=== PATIENT | male | born 1945 | race Caucasian/White ===

== ENCOUNTER 2021-09-28 16:35 | Outpatient (REF) | payer SELFPAY ==
[2021-09-28 17:49] LABS: Abs Immature Grans 0.01 10^3/uL (0.0-0.06); Absolute Basophil Count 0.05 10^3/uL (0.0-0.2); Absolute Eosinophil Count 0.21 10^3/uL (0.0-0.7); Absolute Lymphocyte Count 1.03 10^3/uL (1.2-3.4); Absolute Monocyte Count 0.54 10^3/uL (0.1-0.8); Basophils % 1.1; Eosinophils % 4.7; HCT 35.4 % (40.0-50.0); HGB 11.8 g/dL (13.5-17.5); Immature Grans % 0.2; Lymphocytes % 23.2; MCH 33.1 pg (27.0-33.0); MCHC 33.3 % (32.0-36.0); MCV 99.2 fL (80-95); MPV 10.6 fL (8.0-11.0); Monocytes % 12.2; Neutrophils % 58.6; Nucleated RBC 0 %; Platelet Count 128 10^3/uL (130-400); RBC 3.57 10^6/uL (4.36-5.78); RDW 15.2 % (11.8-14.1); RDW-SD 56.1 fL; WBC 4.44 10^3/uL (4.4-10.8)
[2021-09-28 18:05] LABS: ALT 21 U/L (16-63); AST 51 U/L (15-37); Albumin 2.9 g/dL (3.4-5.0); Alkaline Phosphatase 122 U/L (46-116); Anion Gap 5.5 mmol/L (3-11); BUN 24 mg/dL (7-18); Bilirubin, Direct 0.4 mg/dL (0.0-0.2); Bilirubin, Total 1.1 mg/dL (0.2-1.0); CO2 29.5 mmol/L (21.0-32.0); CREATININE 0.7 mg/dL (0.70-1.30); Calcium 8.3 mg/dL (8.5-10.1); Chloride 108 mmol/L (98-107); Glucose 115 mg/dL (74-106); Potassium 3.9 mmol/L (3.5-5.1); Sodium 143 mmol/L (136-145); Total Protein 6.6 g/dL (6.4-8.2)
== END 2021-09-28 16:36 | disposition home or self-care (01) ==
LOC: LBN 16:35
PROVIDERS: Visit Provider Family Medicine
DX: E11.40 Type 2 diabetes mellitus with diabetic neuropathy, unspecified (principal); I10 Essential (primary) hypertension
CPT/HCPCS: 80048; 80076; 85025

== ENCOUNTER 2021-11-03 16:17 | Outpatient (REF) | payer MEDICARE, SELFPAY ==
[2021-11-03 19:38] LABS: Absolute Basophil Count 0.05 10^3/uL (0.0-0.2); Absolute Eosinophil Count 0.19 10^3/uL (0.0-0.7); Absolute Lymphocyte Count 0.92 10^3/uL (1.2-3.4); Absolute Monocyte Count 0.71 10^3/uL (0.1-0.8); Absolute Neutrophil Count 2.28 10^3/uL (1.2-6.7); Basophils % 1.2; Eosinophils % 4.6; HCT 33.3 % (40.0-50.0); HGB 11.3 g/dL (13.5-17.5); Lymphocytes % 22.2; MCH 34.2 pg (27.0-33.0); MCHC 33.9 % (32.0-36.0); MCV 100.9 fL (80-95); MPV 10.5 fL (8.0-11.0); Monocytes % 17.1; Neutrophils % 54.9; Nucleated RBC 0 %; Platelet Count 108 10^3/uL (130-400); RDW 14.9 % (11.8-14.1); RDW-SD 55.2 fL; WBC 4.15 10^3/uL (4.4-10.8)
[2021-11-03 19:43] LABS: ALT 10 U/L (16-63); AST 30 U/L (15-37); Albumin 2.5 g/dL (3.4-5.0); Alkaline Phosphatase 93 U/L (46-116); Anion Gap 6.9 mmol/L (3-11); BUN 19 mg/dL (7-18); Bilirubin, Total 1.1 mg/dL (0.2-1.0); C-Reactive Protein 0.83 mg/dL (0.0-0.3); CO2 26.1 mmol/L (21.0-32.0); CREATININE 0.8 mg/dL (0.70-1.30); Calcium 8.4 mg/dL (8.5-10.1); Chloride 107 mmol/L (98-107); Creatine Kinase 52 U/L (39-308); Glucose 117 mg/dL (74-106); Potassium 4.1 mmol/L (3.5-5.1); Sodium 140 mmol/L (136-145); Total Protein 5.8 g/dL (6.4-8.2)
== END 2021-11-03 16:18 | disposition home or self-care (01) ==
LOC: LBN 16:17
PROVIDERS: Visit Provider Family Medicine
DX: G20 Parkinson's disease (principal); E11.40 Type 2 diabetes mellitus with diabetic neuropathy, unspecified; I48.0 Paroxysmal atrial fibrillation
CPT/HCPCS: 80053; 82550; 85025; 86140

== ENCOUNTER 2021-12-03 18:14 | Outpatient (REF) | payer MEDICARE, OTHER, SELFPAY ==
[2021-12-03 19:50] LABS: Bilirubin Negative (Negative); Blood Moderate (Negative); Clarity Sl Cloudy (Clear); Glucose Negative (Negative); Ketones Negative (Negative); Leukocyte Esterase Negative (Negative); Nitrite Negative (Negative); Specific Gravity >= 1.030 (1.005-1.025)
[2021-12-03 20:07] LABS: Bacteria Negative HPF (Negative); Epithelial Cells Negative HPF (Negative); Other Cells Negative (Negative); RBC >50 HPF (0-2)
[2021-12-03 20:08] LABS: C & S Indicated? C&S Done As Ordered; Casts Negative LPF (Negative); Crystals Mod Calcium Oxalate HPF (Negative); Mucus Heavy (Negative)
== END 2021-12-03 18:15 | disposition home or self-care (01) ==
LOC: LBN 18:14
PROVIDERS: PCP Family Medicine; Visit Provider Family Medicine
DX: R41.0 Disorientation, unspecified (principal)
CPT/HCPCS: 81003; 81015; 87086

== ENCOUNTER 2022-02-17 14:13 | Outpatient (REF) | payer MEDICARE, OTHER, SELFPAY ==
[2022-02-17 17:10] LABS: HCT 32.6 % (40.0-50.0); HGB 11.3 g/dL (13.5-17.5); MCH 35.9 pg (27.0-33.0); MCHC 34.7 % (32.0-36.0); MCV 104 fL (80-95); MPV 10.4 fL (8.0-11.0); RBC 3.15 10^6/uL (4.36-5.78); RDW 15.2 % (11.8-14.1); RDW-SD 58.2 fL; WBC 3.84 10^3/uL (4.4-10.8)
[2022-02-17 17:15] LABS: Platelet Count 101 10^3/uL (130-400)
== END 2022-02-17 14:14 | disposition home or self-care (01) ==
LOC: LBN 14:13
PROVIDERS: PCP Family Medicine; Visit Provider Nurse Practitioner Family
DX: E11.40 Type 2 diabetes mellitus with diabetic neuropathy, unspecified (principal)
CPT/HCPCS: 85027

== ENCOUNTER 2022-03-03 12:56 | Emergency (ER) | payer OTHER, MEDICARE, SELFPAY ==
[2022-03-03] VITALS (16 sets, daily range): BP systolic 136–169; BP diastolic 50–68; PULSE 62–77; RESP 8–16; TEMP 36.8; O2SAT 98–99
--- NOTE | 2022-03-03 13:15 | RT.EKG_ITS ---
APPROVED REPORT Exam: Resting ECG Reason for Exam: chest pain Patient Location: E HR:66 bpm ECG Measurements Heart Rate 66 AXIS MO 150 P -8 QRSd 116 QRS 45 QT 444 T 242 QTc 467 Conclusion Sinus rhythm...normal P axis, V-rate 60- 99 Nonspecific intraventricular conduction delay...QRSd >115mS, not LBBB/RBBB Low voltage, precordial leads...precordial leads <1.0mV Nonspecific T abnormalities, lateral leads...T <-0.10mV, I aVL V5 V6. Sinus. Less than 1mm ST depression in inferolateral leads. No old ekg to compare. No STEMI. I have reviewed and interpreted ECG and agree with software generated interpretation.
--- NOTE | 2022-03-03 13:15 | DI.CT_ITS ---
Exam(s) CT HEAD WO EXAM: CT HEAD WO CLINICAL HISTORY: altered mental status, r/o acute cva. TECHNIQUE: Imaging Protocol: Axial computed tomography images with coronal and sagittal reformatted images were created and reviewed COMPARISON: No exams were available for comparison FINDINGS: Ventricles and Extra axial spaces: Normal in size and morphology for the patient's age. Hemorrhage: None. Cerebral parenchyma: Atrophy. White matter changes consistent with small vessel disease. Midline shift: None. Brainstem/Cerebellum: Normal. Calvarium: Normal. Visualized Paranasal sinuses/Mastoids: Clear. IMPRESSION: No acute abnormality. RADIATION DOSE DELIVERED: 805.59mGy.cm Total DLP 805.59mGy.cm Total DLP DATA REPOSITORY: All CT scans at this facility are submitted to the National Radiology Data Registry (NRDR) Dose Index Registry (DIR) with the [employer] ([employer]). RADIATION OPTIMIZATION: All CT scans at this facility use at least one of these dose optimization te chniques: automated exposure control; mA and/or kV adjustment per patient size (includes targeted exa ms where dose is matched to clinical indication); or iterative reconstruction.
[2022-03-03 13:55] LABS: Absolute Basophil Count 0.04 10^3/uL (0.0-0.2); Absolute Eosinophil Count 0.16 10^3/uL (0.0-0.7); Absolute Lymphocyte Count 0.96 10^3/uL (1.2-3.4); Absolute Monocyte Count 0.54 10^3/uL (0.1-0.8); Absolute Neutrophil Count 2.17 10^3/uL (1.2-6.7); Eosinophils % 4.1; HCT 31.5 % (40.0-50.0); HGB 11.1 g/dL (13.5-17.5); Lymphocytes % 24.8; MCH 35.8 pg (27.0-33.0); MCHC 35.2 % (32.0-36.0); MCV 102 fL (80-95); MPV 9.4 fL (8.0-11.0); Neutrophils % 56.1; Platelet Count 104 10^3/uL (130-400); RDW 14.9 % (11.8-14.1); RDW-SD 55.7 fL; WBC 3.87 10^3/uL (4.4-10.8)
[2022-03-03 14:11] LABS: ALT 25 U/L (16-63); AST 44 U/L (15-37); Albumin 2.4 g/dL (3.4-5.0); Alkaline Phosphatase 113 U/L (46-116); Anion Gap 4.9 mmol/L (3-11); BUN 21 mg/dL (7-18); Bilirubin, Total 1.7 mg/dL (0.2-1.0); CO2 31.1 mmol/L (21.0-32.0); CREATININE 0.6 mg/dL (0.70-1.30); Calcium 8.4 mg/dL (8.5-10.1); Chloride 104 mmol/L (98-107); Glucose 117 mg/dL (74-106); Lipase 56 U/L (73-393); Magnesium 1.9 mg/dL (1.8-2.4); Potassium 3.5 mmol/L (3.5-5.1); Sodium 140 mmol/L (136-145); Total Protein 6.1 g/dL (6.4-8.2); Troponin I < 50 ng/L (<or=60)
[2022-03-03 14:11] LABS: Bilirubin Negative (Negative); Blood Large (Negative); Clarity Cloudy (Clear); Glucose Negative (Negative); Ketones Negative (Negative); Leukocyte Esterase Negative (Negative); Nitrite Negative (Negative); Specific Gravity >= 1.030 (1.005-1.025); Urobilinogen >=8.0 EU/dL (Up TO 0.2); pH 6.5 (5-8)
[2022-03-03 14:17] LABS: Bacteria Negative HPF (Negative); Epithelial Cells Rare HPF (Negative); RBC >50 HPF (0-2); WBC 0-2 HPF (0-5)
[2022-03-03 14:18] LABS: C & S Indicated? No; Casts 3-5 Hyaline LPF (Negative); Crystals Few Calcium Oxalate HPF (Negative); Mucus Trace (Negative)
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
--- NOTE | 2022-03-03 14:46 | DI.RAD_ITS ---
Exam(s) XR CHEST 2V PA LATERAL EXAM: XR CHEST 2V PA LATERAL CLINICAL HISTORY: right sided rib pain, r/o acute disease TECHNIQUE: 2D digital imaging was performed. COMPARISON: No exams were available for comparison FINDINGS: Aorta tortuous. HEART: Mildly enlarged. PULMONARY VASCULATURE: Normal. LUNGS: Clear. PLEURAL SPACE: No pleural effusion or pneumothorax. BONE:Degenerative disc changes are noted in the thoracic spine. No compression fractures. IMPRESSION: No acute abnormality. DATA REPOSITORY: RADIATION DOSE DELIVERED:
== END 2022-03-03 16:50 | disposition home or self-care (01) ==
PROVIDERS: Emergency Provider Physician Assistant; PCP Family Medicine
DX: R41.0 Disorientation, unspecified (principal); R07.89 Other chest pain
CPT/HCPCS: 36415; 80053; 83690; 93005; 99285; 70450; 71046; 81003; 81015; 83735; 84484; 85025; 93010; 99284; J2405

== ENCOUNTER 2022-03-11 18:32 | Outpatient (REF) | payer MEDICARE, OTHER, SELFPAY ==
[2022-03-11 16:40] LABS: Bilirubin Small (Negative); Blood Large (Negative); Clarity Cloudy (Clear); Glucose Negative (Negative); Ketones Negative (Negative); Leukocyte Esterase Large (Negative); Nitrite Negative (Negative); Specific Gravity 1.025 (1.005-1.025); Urobilinogen >=8.0 EU/dL (Up TO 0.2); pH 6.5 (5-8)
[2022-03-11 17:06] LABS: WBC 20-50 HPF (0-5)
[2022-03-11 17:07] LABS: Bacteria Moderate HPF (Negative); C & S Indicated? Yes; Casts Negative LPF (Negative); Crystals Mod Calcium Oxalate HPF (Negative); Epithelial Cells Rare HPF (Negative); Mucus Moderate (Negative); RBC >50 HPF (0-2)
== END 2022-03-11 18:33 | disposition home or self-care (01) ==
LOC: LBN 18:32
PROVIDERS: PCP Family Medicine; Visit Provider Family Medicine
DX: N39.0 Urinary tract infection, site not specified (principal); R39.89 Other symptoms and signs involving the genitourinary system
CPT/HCPCS: 81003; 81015; 87086